=== PATIENT | male | born 1990 | race Caucasian/White ===

== ENCOUNTER 2018-06-06 13:21 | Emergency (ER) | payer MEDICAID ==
[~2018-06-06] VITALS: Ht 180.3 cm; Wt 56.0 kg
[2018-06-06 13:37] VITALS: BP 108/67; Ht 180.3 cm; Wt 56.0 kg
== END 2018-06-06 14:55 | disposition home or self-care (01) ==
LOC: ED 13:21
DX: F31.9 Bipolar disorder, unspecified (principal)